=== PATIENT | female | born 1960 | race Caucasian/White ===

== ENCOUNTER → 2019-07-21 16:06 | Outpatient (CLI) | payer OTHER, SELFPAY ==
[2019-07-21 18:02] LABS: Clostridium Difficile Tox PCR Positive for C. diff
== END ==
PROVIDERS: PCP Registered Nurse; Visit Provider Registered Nurse
DX: R19.7 Diarrhea, unspecified (principal)
CPT/HCPCS: 87493

== ENCOUNTER → 2019-09-09 15:36 | Outpatient (CLI) | payer OTHER, SELFPAY ==
[2019-09-09 20:49] LABS: Clostridium Difficile Tox PCR Positive for C. diff
== END ==
PROVIDERS: PCP Registered Nurse; Visit Provider Registered Nurse
DX: A04.71 Enterocolitis due to Clostridium difficile, recurrent (principal)
CPT/HCPCS: 87493

== ENCOUNTER 2019-11-23 18:32 | Emergency (ER) | payer OTHER, SELFPAY ==
--- NOTE | 2019-11-23 18:40 | DI.RAD.S_ITS ---
PROCEDURE: XR WRIST LT MIN 3V INDICATIONS: lt wrist deformity after fall TECHNIQUE: 4 views of the wrist were acquired. COMPARISON: None. FINDINGS: Bones: Acute impacted fracture involving distal radius is seen with slight posterior angulation at fracture site. No dislocation. No other fracture is noted.. No suspicious bony lesions. Scaphoid view: Scaphoid is grossly intact. Soft tissues: No suspicious soft tissue calcifications. IMPRESSION: Acute impacted fracture involving distal radius. Dictated by: Supa Yang M.D. on 11/23/2019 at 19:06 Approved by: Supa Yang M.D. on 11/23/2019 at 19:07
[2019-11-23 18:41] VITALS: BP 120/68; PULSE 58; RESP 18; TEMP 36.7; O2SAT 98
--- NOTE | 2019-11-23 18:57 | ED_ITS ---
HPI - General Adult General Chief complaint: Extremity Injury, Upper Stated complaint: Fell in [place], suspects fracture of L wrist & arm Time Seen by Provider: 11/23/19 18:34 Source: patient Mode of arrival: Ambulatory Limitations: no limitations History of Present Illness HPI narrative: 59-year-old female here for evaluation of left wrist injury. Patient states she was hiking in slid down a my the slope landing on her left wrist/arm. She is unsure exactly how she landed on her wrist but had immediate pain after the fall. Has a deformity. She reports no other injuries from the event. Did not hit her head. No neck pain. Was able to ambulate into the emergency department. No breaks in the skin. No numbness or tingling in her hand or fingers. No left elbow pain or left shoulder pain. Related Data Home Medications Medication Instructions Recorded Confirmed diclofenac sodium 75 mg PO BID #0 06/19/17 hydroxyzine HCl #0 06/19/17 Previous Rx's Medication Instructions Recorded pantoprazole [Protonix] 40 mg PO QDAY #15 tab 06/19/17 hydrocodone-acetaminophen [Girard] 1 tab PO Q4-6H PRN #14 tab 11/23/19 Allergies Allergy/AdvReac Type Severity Reaction Status Date / Time amoxicillin [From AUGMENTIN] Allergy Unknown Verified 11/23/19 19:32 clavulanic acid Allergy Unknown Verified 11/23/19 19:32 [From AUGMENTIN] Review of Systems Constitutional Constitutional: Denies fever(s) and Denies frequent falls ENT Ears, Nose, Mouth, and Throat: Denies disequilibrium Cardiovascular Cardiovascular: Denies chest pain and Denies dyspnea Respiratory Respiratory: Denies dyspnea Gastrointestinal Gastrointestinal: Denies abdominal pain Musculoskeletal Musculoskeletal: Denies tingling Comments: Left wrist pain Integumentary/Breasts Skin/Breast: Denies lesions and Denies rash Neurologic Neurologic: Denies frequent falls, Denies tingling, Denies paresthesias and Denies disequilibrium Hematologic/Lymphatic Hematologic/Lymphatic: Denies easy bleeding and Denies easy bruising Patient History Medical History GI bleed due to NSAIDs (Inactive) Right leg pain (Inactive) Social History marital status: lives independently: Yes Exam Initial Vital Signs Initial Vital Signs: Vital Signs Temperature 98.0 F 11/23/19 18:41 Pulse Rate 58 L 11/23/19 18:41 Respiratory Rate 18 11/23/19 18:41 Blood Pressure 120/68 11/23/19 18:41 Pulse Oximetry 98 11/23/19 18:41 Const General: cooperative, comfortable and well developed Limitations: mental status not altered HENMT Head: normal to inspection and normocephalic Resp Effort & Inspection: normal respiratory effort Cardio Pulses: radial pulses present on the left Skin Lesions: no lesions Rashes: no rashes Neuro Sensory Exam: no sensory deficits noted Extrem Other: Left hand unremarkable. Patient does have a slight deformity and tenderness to palpation along the distal radius and distal ulna. Cannot pronate and supinate secondary to pain. Her left elbow is not tender to palpation. She can flex and extend the elbow without problems. Her left shoulder is unremarkable. No other orthopedic injuries found on exam reported by patient. Psych Appearance: grossly normal and well kempt Procedures Orthopedic Splinting/Casting Injury #1: Side: left Upper Extremity Injury Location: wrist Upper Extremity Immobilizer: sugar tong splint Post splinting neuro exam: no change Post splinting vascular exam: no change Placed by: Provider Course Orders Ordered: ED Orders 11/23/19 18:40 XR wrist LT min 3V Stat 11/23/19 19:04 XR elbow LT min 3V Stat Discontinued Medications Hydromorphone HCl (Dilaudid) 1 mg IM NOW ONE Stop: 11/23/19 19:24 Last Admin: 11/23/19 19:32 Dose: 1 mg Documented by: NAUN Ondansetron HCl (Zofran Odt) 4 mg SL NOW ONE Stop: 11/23/19 19:26 Last Admin: 11/23/19 19:32 Dose: 4 mg Documented by: NAUN Vital Signs Vital signs: Vital Signs - 8 hr 11/23/19 18:41 11/23/19 19:38 Temperature 98.0 F Pulse Rate 58 L 60 Respiratory Rate 18 16 Blood Pressure 120/68 Blood Pressure [Right Arm] 130/64 Pulse Oximetry 98 100 Medical Decision Making Imaging Data Extremity x-ray #1: Radiologist's Impression: [address] [address] XRay Report Signed Patient: Nuris Portillo [facility]#: [id number] : 9Acct:[id number] Age/Sex: 59 / FDate of Service: 11/23/19 Loc: ED Accession Number: [id number] Procedure: XR wrist LT min 3V Ordering Provider: Jose Martin Bowers D.O. PROCEDURE: XR WRIST LT MIN 3V INDICATIONS: lt wrist deformity after fall TECHNIQUE: 4 views of the wrist were acquired. COMPARISON: None. FINDINGS: Bones: Acute impacted fracture involving distal radius is seen with slight posterior angulation at fracture site. No dislocation. No other fracture is noted.. No suspicious bony lesions. Scaphoid view: Scaphoid is grossly intact. Soft tissues: No suspicious soft tissue calcifications. IMPRESSION: Acute impacted fracture involving distal radius. Dictated by: Supa Yang M.D. on 11/23/2019 at 19:06 Approved by: Supa Yang M.D. on 11/23/2019 at 19:07 Extremity x-ray #2: Radiologist's Impression: [place] [address] XRay Report Signed Patient: Nuris Portillo [facility]#: [id number] : 9Acct:[id number] Age/Sex: 59 / FDate of Service: 11/23/19 Loc: ED Accession Number: [id number] Procedure: XR elbow LT min 3V Ordering Provider: Jose Martin Bowers D.O. PROCEDURE: XR ELBOW LT MIN 3V INDICATIONS: distal radius fx eval for prox ulna pathology TECHNIQUE: 3 views of the elbow were acquired. COMPARISON: None. FINDINGS: Bones: No fractures or dislocations. No suspicious bony lesions. Soft tissues: No elbow joint effusion. No suspicious soft tissue ca lcifications. IMPRESSION: No acute elbow fracture or dislocation. No joint effusion. Dictated by: Supa Yang M.D. on 11/23/2019 at 19:26 Approved by: Supa Yang M.D. on 11/23/2019 at 19:30 [facility] Narrative Medical decision making narrative: Patient is neurovascularly intact. She does have a distal radius fracture. Her left elbow is unremarkable on x-rays. She reports no other injuries from the event. Splint applied as described above. Patient was given care instructions and return precautions. She expressed u nderstanding and agreement. Discharge Plan Departure Patient Disposition: Home Clinical Impression: Distal radius fracture, left Qualifiers: Encounter type: initial encounter Fracture type: closed Fracture morphology: u nspecified fracture morphology Qualified Code(s): S52.502A - Unspecified fracture of the lower end of left radius, initial encounter for closed fracture Instructions: How to Take Care of Your Splint, DI for Distal Radius Fracture Activity Restrictions/Additional Instructions: Recommend that you contact the [facility] group at [phone] tomorrow to establish a follow-up later this week. Also recommend you contact your primary provider. The splint needs to stay on and stay clean and stay dry. Treat it like a cast. Take the medication as needed. Return to the emergency department for any new or worsening symptoms Prescriptions: New hydrocodone-acetaminophen [Girard] 5-325 mg tablet 1 tab PO Q4-6H PRN (Reason: pain) Qty: 14 RF: 0 No Action diclofenac sodium 75 MG tablet,delayed release (DR/EC) 75 mg PO BID Qty: 0 RF: 0 hydroxyzine HCl 25 MG tablet Qty: 0 RF: 0 pantoprazole [Protonix] 40 MG tablet,delayed release (DR/EC) 40 mg PO QDAY Qty: 15 RF: 0 Referrals: Ginger Ruff ARNP [Primary Care Provider] -
--- NOTE | 2019-11-23 19:04 | DI.RAD.S_ITS ---
PROCEDURE: XR ELBOW LT MIN 3V INDICATIONS: distal radius fx eval for prox ulna pathology TECHNIQUE: 3 views of the elbow were acquired. COMPARISON: None. FINDINGS: Bones: No fractures or dislocations. No suspicious bony lesions. Soft tissues: No elbow joint effusion. No suspicious soft tissue calcifications. IMPRESSION: No acute elbow fracture or dislocation. No joint effusion. Dictated by: Supa Yang M.D. on 11/23/2019 at 19:26 Approved by: Supa Yang M.D. on 11/23/2019 at 19:30
[2019-11-23] MEDS: ONDANSETRON 4 MG ODT SL (19:32)
[2019-11-23] MEDS: HYDROMORPHONE 1 MG INJ IM (19:32)
[2019-11-23 19:38] VITALS: BP 130/64; PULSE 60; RESP 16; O2SAT 100
--- NOTE | 2019-11-23 20:35 | PC.NURSE ---
rn at bedside for cast assist. patient tolerated well. CSM intact prior splinting and post splinting. Denies complaints and stated pain improved with medication and pressure of splint.
[2019-11-23 20:36] VITALS: BP 130/64; PULSE 61; RESP 14; TEMP 37.1; O2SAT 100
== END 2019-11-23 20:39 | disposition home or self-care (01) ==
PROVIDERS: Emergency Provider Emergency Medicine; PCP Registered Nurse
DX: S52.502A Unspecified fracture of the lower end of left radius, initial encounter for closed fracture (principal); W19.XXXA Unspecified fall, initial encounter
CPT/HCPCS: 73080; 73110; 96372; 99283; 99284; J1170

== ENCOUNTER → 2019-12-22 09:39 | Outpatient (CLI) | payer OTHER, SELFPAY | PROVIDERS: PCP Registered Nurse; Referring Provider Orthopaedic Surgery; Visit Provider Orthopaedic Surgery | DX: M25.532 Pain in left wrist (principal); S52.572A Other intraarticular fracture of lower end of left radius, initial encounter for closed fracture | CPT/HCPCS: 36415; 82306 ==

== ENCOUNTER → 2020-01-07 14:41 | Outpatient (CLI) | payer OTHER, SELFPAY ==
[2020-01-07 15:00] LABS: Bacteria Urine None Seen; RBC Urine None Seen (0-5/HPF)
[2020-01-07 16:59] LABS: Appearance Urine UA CLEAR; Bilirubin Urine UA NEGATIVE (NEGATIVE); Color Urine UA YELLOW; Glucose Urine UA NEGATIVE (Negative); Ketones Urine UA NEGATIVE (NEGATIVE); Leukocyte Esterase Urine UA NEGATIVE (NEGATIVE); Nitrite Urine UA NEGATIVE (Negative); Occult Blood Urine UA NEGATIVE (Negative); Protein Urine UA NEGATIVE (Negative); Specific Gravity Urine UA <=1.005 (1.000-1.035); Urobilinogen Urine UA 0.2 E.U./dL (0.2)
[2020-01-07 17:05] LABS: pH Urine UA 5.5 (4.5-8.0)
[2020-01-07 17:16] LABS: Culture Indicated Urine Cult Not Indicated; Squamous Epithelial Cell Urine 0-1 /HPF (0-5/HPF); WBC Urine 0-1/HPF (0-5/HPF)
== END ==
PROVIDERS: PCP Registered Nurse; Referring Provider Urology; Visit Provider Urology
DX: N20.0 Calculus of kidney (principal)
CPT/HCPCS: 81001

== ENCOUNTER 2020-07-20 12:23 | Emergency (ER) | payer OTHER, SELFPAY ==
[2020-07-20] VITALS (7 sets, daily range): BP systolic 116–144; BP diastolic 63–89; PULSE 68–78; RESP 14–35; TEMP 36.8; O2SAT 95–98; BMI 40.2
[2020-07-20 13:13] LABS: Add Manual Diff / Slide Review NO; Basophils Absolute Auto 0 /uL (0-100); Basophils Percent Auto 0.6 % (0-2); Eosinophils Absolute Auto 100 /uL (0-450); Eosinophils Percent Auto 1.3 % (2-4); Hematocrit 42.1 % (36-46); Lymphocytes Absolute Auto 1300 /uL (1100-4500); Lymphocytes Percent Auto 16.1 % (25-40); Mean Corpuscular HGB Conc 33.3 % (30-36); Mean Corpuscular Hemoglobin 28.4 PG (26-34); Mean Corpuscular Volume 85.5 fL (80-100); Monocytes Absolute Auto 300 /uL (0-900); Monocytes Percent Auto 4.3 % (3-14); Neutrophils Absolute Auto 6200 /uL (1500-7000); Neutrophils Percent Auto 77.7 % (50-75); Platelet Count 314 X10^3/uL (150-400); Red Blood Cell Count 4.93 X10^6/uL (4.0-5.2); Red Cell Distribution Width 13.9 % (11.6-14.8)
[2020-07-20 13:21] LABS: INR 1.1 (0.9-1.3); Prothrombin Time 13.1 SECONDS (10.1-12.7)
[2020-07-20 13:24] LABS: PTT Partial Thromboplastin Tim 39 SECONDS (26.4-36.2)
[2020-07-20 13:27] LABS: Alanine Aminotransferase 34 IU/L (<35); Albumin 4.6 g/dL (3.5-5.0); Albumin Globulin Ratio 1.2 (1.0-2.8); Alkaline Phosphatase 88 U/L (38-126); Aspartate Aminotransferase 34 IU/L (14-36); BUN Creatinine Ratio 11.6 (6-22); Bilirubin Total 0.8 mg/dL (0.2-1.3); Blood Urea Nitrogen 8 mg/dL (7-17); Calcium 9.7 mg/dL (8.4-10.2); Carbon Dioxide 28 mmol/L (22-32); Chloride 104 mmol/L (98-107); Estimated Glomerular Filt Rate > 60.0 mL/min (>60); Globulin 3.9 g/dL (1.7-4.1); Glucose 95 mg/dL (80-110); HEMOLYSIS < 15 (0-50); Lipase 60 U/L (23-300); Sodium 139 mmol/L (137-145); Total Protein 8.5 g/dL (6.3-8.2)
[2020-07-20 15:30] LABS: Lactate (Lactic Acid) 1.1 mmol/L (0.7-2.1)
--- NOTE | 2020-07-20 15:31 | DI.CT.S_ITS ---
PROCEDURE: CT ABDOMEN PELVIS W CON INDICATIONS: LLQ pain and fever, hx of diverticulits TECHNIQUE: After the administration of intravenous contrast, 5 mm thick sections acquired from the diaphragm to the symphysis. 5 mm coronal and sagittal reformats were acquired. For radiation dose reduction, the following was used: automated exposure control, adjustment of mA and/or kV according to patient size. COMPARISON: [facility], CT, CT ABDOMEN PELVIS WITH CONTRAST, 06/15/2019, 14:51. [facility], US, US RENAL COMPLETE, 02/20/2020, 9:59. FINDINGS: Image quality: Excellent. ABDOMEN: Lung bases: Lung bases are clear. Heart size is normal. Solid organs: There is hepatic steatosis. Liver is normal in size and enhancement. Gallbladder is surgically absent. Biliary system is non dilated. Pancreas enhances normally. Spleen is normal in size and enhancement. No adrenal nodules. There are a couple of stones in the right kidney measuring 6 mm and 2 mm. A 1.2 cm cortical nodule is seen in the superior pole of the right kidney. Kidneys demonstrate normal size and enhancement, without hydronephrosis. Peritoneum and bowel: There are scattered colonic diverticula. Mild focal stranding in the descending colon consistent with acute diverticulitis. Bowel loops demonstrate normal wall thickness and caliber. No free fluid or air. Nodes and vessels: No retroperitoneal or mesenteric adenopathy by size criteria. Aorta and inferior vena cava are normal in size. Miscellaneous: No ventral hernias. PELVIS: Genitourinary: Bladder wall thickness is normal. Uterus is normal. Ovaries are unremarkable. No pathological free-fluid. Miscellaneous: No inguinal hernias or adenopathy. Bones: No suspicious bony lesions. No vertebral body compression fractures. There is an intra osseous hemangioma in T11. IMPRESSION: 1. Diverticulosis. Mild uncomplicated diverticulitis involving the descending colon. 2. Nonobstructive right renal calculi. 3. Hepatic steatosis. Dictated by: Kelly Lakhani M.D. on 07/20/2020 at 15:53 Approved by: Kelly Lakhani M.D. on 07/20/2020 at 16:01
[2020-07-20] MEDS: SODIUM CHLORIDE 0.9% 1,000 ML 150 ML IV (15:39)
[2020-07-20 16:43] LABS: Bacteria Urine Few (2-10); Culture Indicated Urine Cult Not Indicated; Mucus Urine 1+ (Negative); RBC Urine 0-1/HPF (0-5/HPF); Squamous Epithelial Cell Urine 0-1 /HPF (0-5/HPF); WBC Urine 0-1/HPF (0-5/HPF)
--- NOTE | 2020-07-20 17:15 | ED_ITS ---
HPI - Abdominal Pain <CHARLOTTE Yeung - Last Filed: 07/20/20 17:32> General Chief Complaint: Abdominal Pain Stated Complaint: Diverticulitis, Fever Time Seen by Provider: 07/20/20 15:15 Source: patient Mode of arrival: Ambulatory Limitations: no limitations History of Present Illness HPI narrative: This is a 59-year-old female, nonsmoker, who has past medical history significant for right renal stone with lithotripsy, fatty liver, diverticulitis, C diff infection required 2 fecal treatment therapy after using antibiotic medication presents to ED with localized left lower quadrant pain which started 3-4 days ago. Patient reports slight discomfort in left inguinal lymph nodes with ambulation. Patient has been on clear liquid diet for 3 days. Patient noticed temperature up to 100.5 F this morning but reports generally improved feeling. Patient 1st diagnosed with diverticulitis 1 year ago at urgent care with CT imaging test and was prescribed with Cipro and Flagyl. 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 Patient also had another episode of C diff infection 4 years ago which required fecal transplant. Patient's is infectious disease specialist Dr. Ramos at [facility] in [place] and sees GI specialist Dr. Mendoza. Patient had loose stool yesterday but normal stools today without any hematochezia or melena. Patient denies chest pain, dyspnea, dizziness, or recent known exposure to COVID illness. Patient denies nausea, vomiting, chills. Patient reports hoping not to use antibiotic medication as much as possible. According to Dr. Ramos, doxycycline is better choice for antibiotic medication treatment for C diff. patient reports had Covid test done in the beginning of June due to fever and sore throat which was negative. Related Data Allergies Allergy/AdvReac Type Severity Reaction Status Date / Time amoxicillin [From AUGMENTIN] Allergy Unknown Verified 07/20/20 12:45 clavulanic acid Allergy Unknown Verified 07/20/20 12:45 [From AUGMENTIN] Review of Systems <CHARLOTTE Yeung - Last Filed: 07/20/20 17:32> Review of Systems Narrative: General: Denies (+) fever, chills, fatigue, malaise, sweats. HEENT: Denies sinus pain, ear pain, sore throat, difficulty swallowing, dizziness. Respiratory: Denies dyspnea, cough, wheezing, hemoptysis, sputum. Cardiovascular: Denies chest pain, palpitations, orthopnea, edema. Gastrointestinal: See HPI : Denies dysuria, frequency, incontinence, hematuria, urinary retention. Musculoskeletal: Denies weakness, joint pain or bony pain. Skin: Denies rash, skin lesions, or other. Neurologic: Denies weakness, headache, numbness, change in speech, confusion, seizures, incoordination. Psychiatric: No concerning psychosocial issues. 12-point review of systems is negative except for those stated above. Patient History <CHARLOTTE Yeung - Last Filed: 07/20/20 17:32> Medical History GI bleed due to NSAIDs Right leg pain Social History marital status: lives independently: Yes Smoking Status: Unknown if ever smoked Smoking Status: Unknown if ever smoked alcohol intake frequency: holidays/special occasions only Substance Use Type: does not use Exam <CHARLOTTE Yeung - Last Filed: 07/20/20 17:32> Narrative Exam Narrative: GEN: Alert, oriented x 3, well appearing and nourished, and in no acute distress. Head: Normal cephalic, atraumatic. No scalp or temporal tenderness, palpable mass or rash. EYES: Pupils are equal, round, and reactive to light and accommodation. Extraocular muscles are intact bilaterally. There is no subconjunctival hemorrhage, exudate and sclera non-icteric. ENT: Hearing grossly intact. Nose without bleeding, purulent discharge or deviation. Facial sinuses nontender to palpate. Mucous membrane moist, no mucosal lesion. Throat without erythema, tonsillar hypertrophy or exudate. Uvula in midline, airway patent. Neck: Trachea in midline. No JVD, non-tender without lymphadenopathy. No masses or thyroid megaly. Supple, non-tender and no meningeal signs. CARDIAC: Normal regular rate and rhythm without murmurs, gallops, or rubs. No chest wall tenderness. No peripheral edema, cyanosis or pallor. Capillary refill is less than 2 seconds. RESPIRATORY: Lungs are clear to auscultate bilaterally. No cough, wheezes, rales, or rhonchi. No stridor, respiratory distress, increase work of breathing, or accessary muscle used. ABD: Abdomen soft and non-distended. Mild tenderness to palpate in left lower quadrant. No guarding or rebound tenderness to palpate. Bowel sounds are normal in all 4 quadrants. There is no palpable masses or organomegaly. Slight tenderness to palpate in left groin lymph nodes without mass or swelling. EXT: Full painless ROM of all extremities with no loss of sensation, strength, effusion or edema. SKIN: Warm, dry, normal color for patient. No erythema, lesions or rash over visible areas. BACK: Nontender without deformity or crepitance. No flank tenderness. NEUROLOGICAL: Alert and oriented to place, time and person. Sensation and motor function intact bilaterally. No facial droops, dysphasia. PSYCHIATRIC: Good judgement and reason, without hallucinations, abnormal affect or abnormal behaviors during the examination. Patient is not suicidal. Initial Vital Signs Initial Vital Signs: Vital Signs Temperature 98.3 F 07/20/20 12:45 Pulse Rate 78 07/20/20 12:45 Respiratory Rate 16 07/20/20 12:45 Blood Pressure 144/89 H 07/20/20 12:45 Pulse Oximetry 98 07/20/20 12:45 <Clarice Mcmahan DO - Last Filed: 07/20/20 19:41> Initial Vital Signs Initial Vital Signs: Vital Signs Temperature 98.3 F 07/20/20 12:45 Pulse Rate 78 07/20/20 12:45 Respiratory Rate 16 07/20/20 12:45 Blood Pressure 144/89 H 07/20/20 12:45 Pulse Oximetry 98 07/20/20 12:45 Scores <WANDA YeungP - Last Filed: 07/20/20 17:32> GCS [place] coma scale eye opening: Spontaneous [place] coma scale verbal response: Orientated [place] coma scale motor response: Obey commands [place] coma scale total score: 15 qSOFA Altered Mental Status (GCS <15): No Respiratory rate greater than/equal to 22: No Systolic blood pressure less than or equal to 100: No qSOFA Total: 0 0-1 Not High Risk 1-3 High risk Course <CHARLOTTE Yeung - Last Filed: 07/20/20 17:32> Orders Ordered: ED Orders 07/20/20 12:49 EKG-12 Lead Stat 07/20/20 13:05 Complete Blood Count AUTO DIFF Stat Comprehensive Metabolic Panel Stat Lactate (Lactic Acid) Stat Lipase Stat Partial Thromboplastin Time Stat Prothrombin Time INR Stat 07/20/20 15:30 Urine Microscopic Stat 07/20/20 15:31 CT abdomen pelvis w con Stat Discontinued Medications Sodium Chloride (Normal Saline 0.9%) 1,000 mls @ 150 mls/hr IV CONT DIEGO Last Infusion: 07/20/20 16:42 Dose: 0 mls/hr Documented by: Infusion: 07/20/20 16:40 Dose: 0 mls/hr Documented by: Admin: 07/20/20 15:39 Dose: 150 mls/hr Documented by: JEWELS Vital Signs Vital signs: Vital Signs - 8 hr 07/20/20 12:45 07/20/20 15:13 07/20/20 15:15 Temperature 98.3 F Pulse Rate 78 75 72 Respiratory Rate 16 Blood Pressure 144/89 H 142/86 H Pulse Oximetry 98 96 97 07/20/20 15:30 07/20/20 15:59 07/20/20 16:00 Temperature Pulse Rate 68 76 77 Respiratory Rate 23 35 H 18 Blood Pressure 116/76 123/66 Pulse Oximetry 98 98 98 07/20/20 16:30 Temperature Pulse Rate 73 Respiratory Rate 14 Blood Pressure 118/63 Pulse Oximetry 95 <Clarice Mcmahan, DO - Last Filed: 07/20/20 19:41> Orders Ordered: ED Orders 07/20/20 12:49 EKG-12 Lead Stat 07/20/20 13:05 Complete Blood Count AUTO DIFF Stat Comprehensive Metabolic Panel Stat Lactate (Lactic Acid) Stat Lipase Stat Partial Thromboplastin Time Stat Prothrombin Time INR Stat 07/20/20 15:30 Urine Microscopic Stat 07/20/20 15:31 CT abdomen pelvis w con Stat Discontinued Medications Sodium Chloride (Normal Saline 0.9%) 1,000 mls @ 150 mls/hr IV CONT DIEGO Last Infusion: 07/20/20 16:42 Dose: 0 mls/hr Documented by: Infusion: 07/20/20 16:40 Dose: 0 mls/hr Documented by: Admin: 07/20/20 15:39 Dose: 150 mls/hr Documented by: JEWELS Vital Signs Vital signs: Vital Signs - 8 hr 07/20/20 12:45 07/20/20 15:13 07/20/20 15:15 Temperature 98.3 F Pulse Rate 78 75 72 Respiratory Rate 16 Blood Pressure 144/89 H 142/86 H Pulse Oximetry 98 96 97 07/20/20 15:30 07/20/20 15:59 07/20/20 16:00 Temperature Pulse Rate 68 76 77 Respiratory Rate 23 35 H 18 Blood Pressure 116/76 123/66 Pulse Oximetry 98 98 98 07/20/20 16:30 Temperature Pulse Rate 73 Respiratory Rate 14 Blood Pressure 118/63 Pulse Oximetry 95 MDM - Abdominal Pain <Nicola CHARLOTTE Bethea - Last Filed: 07/20/20 17:32> Differential Diagnosis Differential diagnosis: Likely abdominal pain, calculus of kidney, diverticulitis and other (Constipation, abdominal abscess, perforation,) Medical Records Attestation: I reviewed the patient's medical records. Lab Data Attestation: I reviewed the patient's lab results. Result diagrams: 07/20/20 13:05 07/20/20 13:05 Labs: Lab Results 07/20/20 07/20/20 07/20/20 Range/Units 13:05 13:05 13:05 WBC 8.0 (4.5-11.0) X10^3/uL RBC 4.93 (4.0-5.2) X10^6/uL Hgb 14.0 (12.0-16.0) g/dL Hct 42.1 (36-46) % MCV 85.5 (80-100) fL MCH 28.4 (26-34) PG MCHC 33.3 (30-36) % RDW 13.9 (11.6-14.8) % Plt Count 314 (150-400) X10^3/uL Neut % (Auto) 77.7 H (50-75) % Lymph % (Auto) 16.1 L (25-40) % [place] % (Auto) 4.3 (3-14) % Eos % (Auto) 1.3 L (2-4) % Baso % (Auto) 0.6 (0-2) % Neut # (Auto) 6200 (4827-5452) /uL Lymph # (Auto) 1300 (5172-7064) /uL [place] # (Auto) 300 (0-900) /uL Eos # (Auto) 100 (0-450) /uL Baso # (Auto) 0 (0-100) /uL PT 13.1 H (10.1-12.7) SECONDS INR 1.1 (0.9-1.3) APTT 39 H (26.4-36.2) SECONDS Sodium 139 (137-145) mmol/L Potassium 4.0 (3.4-5.1) mmol/L Chloride 104 (98-107) mmol/L Carbon Dioxide 28 (22-32) mmol/L BUN 8 (7-17) mg/dL Creatinine 0.69 (0.52-1.04) mg/dL Estimated GFR > 60.0 (>60) mL/min BUN/Creatinine Ratio 11.6 (6-22) Glucose 95 (80-110) mg/dL Lactate (0.7-2.1) mmol/L Calcium 9.7 (8.4-10.2) mg/dL Total Bilirubin 0.8 (0.2-1.3) mg/dL AST 34 (14-36) IU/L ALT 34 (<35) IU/L Alkaline Phosphatase 88 (38-126) U/L Total Protein 8.5 H (6.3-8.2) g/dL Albumin 4.6 (3.5-5.0) g/dL Globulin 3.9 (1.7-4.1) g/dL Albumin/Globulin Ratio 1.2 (1.0-2.8) Lipase 60 (23-300) U/L Urine RBC (0-5/HPF) Urine WBC (0-5/HPF) Ur Squamous Epith Cells (0-5/HPF) Urine Bacteria (None) Urine Mucus (Negative) Ur Culture Indicated? 07/20/20 07/20/20 Range/Units 13:05 15:30 WBC (4.5-11.0) X10^3/uL RBC (4.0-5.2) X10^6/uL Hgb (12.0-16.0) g/dL Hct (36-46) % MCV (80-100) fL MCH (26-34) PG MCHC (30-36) % RDW (11.6-14.8) % Plt Count (150-400) X10^3/uL Neut % (Auto) (50-75) % Lymph % (Auto) (25-40) % [place] % (Auto) (3-14) % Eos % (Auto) (2-4) % Baso % (Auto) (0-2) % Neut # (Auto) (5517-5233) /uL Lymph # (Auto) (3578-6588) /uL [place] # (Auto) (0-900) /uL Eos # (Auto) (0-450) /uL Baso # (Auto) (0-100) /uL PT (10.1-12.7) SECONDS INR (0.9-1.3) APTT (26.4-36.2) SECONDS Sodium (137-145) mmol/L Potassium (3.4-5.1) mmol/L Chloride (98-107) mmol/L Carbon Dioxide (22-32) mmol/L BUN (7-17) mg/dL Creatinine (0.52-1.04) mg/dL Estimated GFR (>60) mL/min BUN/Creatinine Ratio (6-22) Glucose (80-110) mg/dL Lactate 1.1 (0.7-2.1) mmol/L Calcium (8.4-10.2) mg/dL Total Bilirubin (0.2-1.3) mg/dL AST (14-36) IU/L ALT (<35) IU/L Alkaline Phosphatase (38-126) U/L Total Protein (6.3-8.2) g/dL Albumin (3.5-5.0) g/dL Globulin (1.7-4.1) g/dL Albumin/Globulin Ratio (1.0-2.8) Lipase (23-300) U/L Urine RBC 0-1/hpf (0-5/HPF) Urine WBC 0-1/hpf (0-5/HPF) Ur Squamous Epith Cells 0-1 /hpf (0-5/HPF) Urine Bacteria Few (2-10) H (None) Urine Mucus 1+ H (Negative) Ur Culture Indicated? Cult not indicated Point of care testing: Point of Care Testing Test Results Negative Urine Dip Bedside Urine Glucose Negative Bedside Urine Bilirubin - Negative Bedside Urine Ketone +++ 80 Urine Specific [place] 1.025 Bedside Urine Occult Blood - Negative Bedside Urine pH 5.5 Bedside Urine Protein - Negative Bedside Urine Urobilinogen - Negative Bedside Urine Nitrite - Negative Bedside Urine Leukocytes - Negative Esterase Imaging Data CT scan - abdomen/pelvis: Radiologist's Impression: [address] [id number] Scan ReportSigned Patient: Nuris Portillo MMR#: [id number]: 9Acct:[id number]/Sex: 59 / FDate of Service: 07/20/20Loc: EDAccession Number: [id number] Procedure: CT abdomen pelvis w con Ordering Provider: Nicola Bethea PROCEDURE: CT ABDOMEN PELVIS W CON INDICATIONS: LLQ pain and fever, hx of diverticulits TECHNIQUE: After the administration of intravenous contrast, 5 mm thick sections acquired from the diaphragm to the symphysis. 5 mm coronal and sagittal reformats were acquired. For radiation dose reduction, the following was used: automated exposure control, adjustment of mA and/or kV according to patient size. COMPARISON: [facility], CT, CT ABDOMEN PELVIS WITH CONTRAST, 06/15/2019, 14:51. [facility], US, US RENAL COMPLETE, 02/20/2020, 9:59. FINDINGS: Image quality: Excellent. ABDOMEN: Lung bases: Lung bases are clear. Heart size is normal. Solid organs: There is hepatic steatosis. Liver is normal in size and enhancement. Gallbladder is surgically absent. Biliary system is non dilated. Pancreas enhances normally. Spleen is normal in size and enhancement. No adrenal nodules. There are a couple of stones in the right kidney measuring 6 mm and 2 mm. A 1.2 cm cortical nodule is seen in the superior pole of the right kidney. Kidneys demonstrate normal size and enhancement, without hydronephrosis. Peritoneum and bowel: There are scattered colonic diverticula. Mild focal stranding in the descending colon consistent with acute diverticulitis. Bowel loops demonstrate normal wall thickness and caliber. No free fluid or air. Nodes and vessels: No retroperitoneal or mesenteric adenopathy by size criteria. Aorta and inferior vena cava are normal in size. Miscellaneous: No ventral hernias. PELVIS: Genitourinary: Bladder wall thickness is normal. Uterus is normal. Ovaries are unremarkable. No pathological free-fluid. Miscellaneous: No inguinal hernias or adenopathy. Bones: No suspicious bony lesions. No vertebral body compression fractures. There is an intra osseous hemangioma in T11. IMPRESSION: 1. Diverticulosis. Mild uncomplicated diverticulitis involving the descending colon. 2. Nonobstructive right renal calculi. 3. Hepatic steatosis. Dictated by: Kelly Lakhani M.D. on 07/20/2020 at 15:53 Approved by: Kelly Lakhani M.D. on 07/20/2020 at 16:01 ECG Data Attestation: I personally reviewed and interpreted this ECG as follows: Prior ECG tracings: not available for review Interpretation: Normal sinus rhythm rate at 72. Normal [place]. AR interval 142, QRS duration 88, QT/QTC 404/442. No acute ST changes. MDM Narrative Medical decision making narrative: This is a 59-year-old female who presents to ED with left lower quadrant pain with history of 1st episode of diverticulitis about a year ago. Unfortunately patient had developed C diff infection twice after antibiotic medication including The diverticulitis treatment with Flagyl and Cipro which required fecal transplant 9 months ago. Patient reports mild fever of 100.5 today but overly improved feeling in pain. Abdominal physical exam was unremarkable with very mild tenderness to palpate in left lower quadrant. She is afebrile in ED with within normal limits of vital signs. No leukocytosis. Normal lactate. Unremarkable chemistry test. Urine test without indications of infection but ketones. CT of abdomen and pelvis result indicates diverticulosis with mild uncomplicated diverticulitis involving the descending colon, nonobstructive right renal calculi measuring 2 and 6 mm, hepatics steatosis. Findings were shared with the patient and weighing risk versus benefit and in shared decision making patient will monitor her symptoms and not treating her symptoms with antibiotic medications at this time. Advised patient to communicate today's findings with Infectious Disease and GI specialist providers in [place]. Patient has been on liquid diet for last 72 hours and will advance to [facility]. Strict return precautions were discussed with priyank chapman and she verbalized understanding in agreement with the treatment plan. She declined pain medications in ED. <Clarice Mcmahan, - Last Filed: 07/20/20 19:41> Lab Data Labs: Lab Results 07/20/20 07/20/20 07/20/20 Range/Units 13:05 13:05 13:05 WBC 8.0 (4.5-11.0) X10^3/uL RBC 4.93 (4.0-5.2) X10^6/uL Hgb 14.0 (12.0-16.0) g/dL Hct 42.1 (36-46) % MCV 85.5 (80-100) fL MCH 28.4 (26-34) PG MCHC 33.3 (30-36) % RDW 13.9 (11.6-14.8) % Plt Count 314 (150-400) X10^3/uL Neut % (Auto) 77.7 H (50-75) % Lymph % (Auto) 16.1 L (25-40) % [place] % (Auto) 4.3 (3-14) % Eos % (Auto) 1.3 L (2-4) % Baso % (Auto) 0.6 (0-2) % Neut # (Auto) 6200 (1784-2627) /uL Lymph # (Auto) 1300 (4801-2212) /uL [place] # (Auto) 300 (0-900) /uL Eos # (Auto) 100 (0-450) /uL Baso # (Auto) 0 (0-100) /uL PT 13.1 H (10.1-12.7) SECONDS INR 1.1 (0.9-1.3) APTT 39 H (26.4-36.2) SECONDS Sodium 139 (137-145) mmol/L Potassium 4.0 (3.4-5.1) mmol/L Chloride 104 (98-107) mmol/L Carbon Dioxide 28 (22-32) mmol/L BUN 8 (7-17) mg/dL Creatinine 0.69 (0.52-1.04) mg/dL Estimated GFR > 60.0 (>60) mL/min BUN/Creatinine Ratio 11.6 (6-22) Glucose 95 (80-110) mg/dL Lactate (0.7-2.1) mmol/L Calcium 9.7 (8.4-10.2) mg/dL Total Bilirubin 0.8 (0.2-1.3) mg/dL AST 34 (14-36) IU/L ALT 34 (<35) IU/L Alkaline Phosphatase 88 (38-126) U/L Total Protein 8.5 H (6.3-8.2) g/dL Albumin 4.6 (3.5-5.0) g/dL Globulin 3.9 (1.7-4.1) g/dL Albumin/Globulin Ratio 1.2 (1.0-2.8) Lipase 60 (23-300) U/L Urine RBC (0-5/HPF) Urine WBC (0-5/HPF) Ur Squamous Epith Cells (0-5/HPF) Urine Bacteria (None) Urine Mucus (Negative) Ur Culture Indicated? 07/20/20 07/20/20 Range/Units 13:05 15:30 WBC (4.5-11.0) X10^3/uL RBC (4.0-5.2) X10^6/uL Hgb (12.0-16.0) g/dL Hct (36-46) % MCV (80-100) fL MCH (26-34) PG MCHC (30-36) % RDW (11.6-14.8) % Plt Count (150-400) X10^3/uL Neut % (Auto) (50-75) % Lymph % (Auto) (25-40) % [place] % (Auto) (3-14) % Eos % (Auto) (2-4) % Baso % (Auto) (0-2) % Neut # (Auto) (0202-6224) /uL Lymph # (Auto) (4022-7817) /uL [place] # (Auto) (0-900) /uL Eos # (Auto) (0-450) /uL Baso # (Auto) (0-100) /uL PT (10.1-12.7) SECONDS INR (0.9-1.3) APTT (26.4-36.2) SECONDS Sodium (137-145) mmol/L Potassium (3.4-5.1) mmol/L Chloride (98-107) mmol/L Carbon Dioxide (22-32) mmol/L BUN (7-17) mg/dL Creatinine (0.52-1.04) mg/dL Estimated GFR (>60) mL/min BUN/Creatinine Ratio (6-22) Glucose (80-110) mg/dL Lactate 1.1 (0.7-2.1) mmol/L Calcium (8.4-10.2) mg/dL Total Bilirubin (0.2-1.3) mg/dL AST (14-36) IU/L ALT (<35) IU/L Alkaline Phosphatase (38-126) U/L Total Protein (6.3-8.2) g/dL Albumin (3.5-5.0) g/dL Globulin (1.7-4.1) g/dL Albumin/Globulin Ratio (1.0-2.8) Lipase (23-300) U/L Urine RBC 0-1/hpf (0-5/HPF) Urine WBC 0-1/hpf (0-5/HPF) Ur Squamous Epith Cells 0-1 /hpf (0-5/HPF) Urine Bacteria Few (2-10) H (None) Urine Mucus 1+ H (Negative) Ur Culture Indicated? Cult not indicated Point of care testing: Point of Care Testing Test Results Negative Urine Dip Bedside Urine Glucose Negative Bedside Urine Bilirubin - Negative Bedside Urine Ketone +++ 80 Urine Specific [place] 1.025 Bedside Urine Occult Blood - Negative Bedside Urine pH 5.5 Bedside Urine Protein - Negative Bedside Urine Urobilinogen - Negative Bedside Urine Nitrite - Negative Bedside Urine Leukocytes - Negative Esterase Discharge Plan Departure Patient Disposition: Home Clinical Impression: Diverticulitis Abdominal pain Qualifiers: Abdominal location: left lower quadrant Qualified Code(s): R10.32 - Left lower quadrant pain Instructions: DI for Diverticulitis, DI for Abdominal Pain-Adult Activity Restrictions/Additional Instructions: You have been diagnosed with [left quadrant pain likely from mild form of diverticulitis. Normal white count of 8.0 very mildly elevated neutrophils of 77.7 %, unremarkable chemistry test. No indications for UTI. CT results indicates diverticulosis with mild uncomplicated diverticulitis involving the descending colon. There are nonobstructing right-sided renal calculi measuring 6 mm and 2 mm. Also hepatic steatosis.]. What to do: *Take your medications as directed. *Follow up with your primary care provider in 2-3 days, call for an appointment. Let them know you were seen in the ED and that we asked you to be seen in foll ow up. Given your history of 2 fecal transplants due to C diff from a antibiotic medications, with this mild form of diverticulitis will monitor your symptoms. Please communicate today's findings with your infectious disease and GI specialist doctors. *Return to ED if you have any new, worsening, or concerning symptoms, such as [worsening pain, fever, unable to tolerate fluids, chest pain, breathing difficulty, or any acute concerns]. Referrals: Ginger Ruff ARNP [Primary Care Provider] - <Clarice Mcmahan DO - Last Filed: 07/20/20 19:41> Cosign ED Attending Carly Attestation: I was immediately available in the department for consultation. Documentation has been reviewed. I agree with assessment and plan.
== END 2020-07-20 16:44 | disposition home or self-care (01) ==
PROVIDERS: Emergency Medicine; Emergency Provider Nurse Practitioner Family; PCP Registered Nurse
DX: K57.92 Diverticulitis of intestine, part unspecified, without perforation or abscess without bleeding (principal); R10.32 Left lower quadrant pain; Z87.442 Personal history of urinary calculi; K76.0 Fatty (change of) liver, not elsewhere classified; R50.9 Fever, unspecified
CPT/HCPCS: 36415; 74177; 80053; 81003; 81015; 81025; 83605; 83690; 85025; 85610; 85730; 93005; 96360; 99283; 99284; Q9967